=== PATIENT | male | born 1980 | race Caucasian/White ===

== ENCOUNTER 2017-08-06 19:14 | Emergency (ER) | payer SELFPAY | END 2017-08-06 20:20 | disposition left against medical advice (07) | LOC: FTE 20:20 | DX: Z53.21 Procedure and treatment not carried out due to patient leaving prior to being seen by health care provider (principal) | CPT/HCPCS: 93005 ==

== ENCOUNTER 2018-02-01 11:22 | Day surgery (SDC) | payer BC ==
[2018-02-01] MEDS ORDERED: PROPOFOL 20 ML (13:19)
== END 2018-02-01 15:18 | disposition home or self-care (01) ==
LOC: GIL 11:22
DX: K29.60 Other gastritis without bleeding (principal); K44.9 Diaphragmatic hernia without obstruction or gangrene; K21.9 Gastro-esophageal reflux disease without esophagitis; E66.9 Obesity, unspecified; Z68.26 Body mass index [BMI] 26.0-26.9, adult
CPT/HCPCS: 43239; 88305; 88312